=== PATIENT | female | born 1975 | race Two or more races ===

== ENCOUNTER 2017-04-02 09:11 | Emergency (ER) | payer MEDICAID ==
[~2017-04-02] VITALS: Ht 157.5 cm; Wt 52.2 kg
--- NOTE | 2017-04-02 09:25 | NUR ---
CALLED IN [place]- NO ANSWER
--- NOTE | 2017-04-02 09:35 | NUR ---
CALLED IN [place]- NO ANSWER
--- NOTE | 2017-04-02 09:45 | NUR ---
CALLED IN [place]- NO ANSWER
[2017-04-02 10:13] VITALS: BP 108/69
== END 2017-04-02 12:05 | disposition home or self-care (01) ==
LOC: ER 09:18
DX: S30.0XXA Contusion of lower back and pelvis, initial encounter (principal); Z91.010 Allergy to peanuts; W18.39XA Other fall on same level, initial encounter; Y93.89 Activity, other specified; Y92.89 Other specified places as the place of occurrence of the external cause; Y99.8 Other external cause status
CPT/HCPCS: 72100; 84703; 99285; A4606; Z7610